=== PATIENT | male | born 1960 | race Two or more races ===

== ENCOUNTER → 2017-04-25 | Outpatient (CLI) | payer BC ==
[~2017-04-25] MED LIST: /WARF25TA PO; ALTA10CA3 PO; DILA2TAB PO; METOPROLOL PO; TYLE325T5 PO; [UNRECOGNIZED DRUG - OTHER] PO
--- NOTE | 2017-04-25 23:45 | ECWPNPC ---
PATIENT NAME: VNA SHARMA : 1960 GENDER: MALE VISIT DATE: 04/25/2017 DISCHARGE DATE: 04/25/17 1520 VISIT LOCKED DATE TIME: PHYSICIAN: MELECIO RAMOS RESOURCE: MELECIO RAMOS REASON FOR APPOINTMENT 1. BACK HISTORY OF PRESENT ILLNESS NEW PATIENT CONSULT: WHEN DID YOUR PAIN FIRST START? . BRIEFLY DESCRIBE HOW YOUR PAIN STARTED? . HOW DOES YOUR PAIN CHANGE WITH TIME? . DOES YOUR PAIN AWAKEN YOU FROM SLEEP? . HOW MANY HOURS OF SLEEP DO YOU NORMALLY GET? . ANY DIAGNOSTIC TESTING? . FACILITY WHERE TESTS WERE DONE? ____. PAIN TREATMENT TREATMENT YES CANCER HAVE YOU EVER HAD ANY TYPE OF CANCER?NO NO. PAIN SCREENING: PATIENT HAS A COMPLAINT OF ACUTE OR CHRONIC PAIN :YES FALL RISK SCREENING: SCREENING :NO FALLS IN THE PAST YEAR DELCID INVENTORY: QUESTIONNAIRE ASSESSEDYES SCORE VALUE CALCULATED YES SCORE: 5/63 DENIES SUICIDAL AND HOMICIDAL IDEATION TODAY'S VISIT: NOTES: REFERRED FOR LOW BACK AND HIP PAIN BY DR LISA LOU FROM [facility]. BACK PAIN BEGAN SUDDDENLY ABOUT 2 YEARS AGO WITH SUDDEN PAIN IN BACK AND THEN WHEN TO KNEES. SAW ROSENDA AND THEN HAD XRAYS, SAW DR RICHARDSON. THEN DR ROJAS FOR NON RAD IO ATTEMPT DO LE - UNABLE TO ACCESS. HAD MARKED PAIN AFTER THIS WAS 2015. HAD SEVERAL WEEKS OF PHYSCAL THERAPY - NO SUCCESS - HARDEST WAS TO BEND FORWARD. LEFT HIP PAIN BEGAN ABOUT 1 YEAR AGO - FOUND TO HAVE DEGENERATIVE CHANGES AND A LABRAL TEAR. SAW DR GRAVES AT [facility] - NO SURGICAL SOLUTION FOR THE BACK PAIN. . HAS DIFFICULT TIME FINDING POSITION OF COMFORT - SLIGHT ELAVATION OF THE HEAD OF BED AND LEFT LEG CAN ALLOW HIM TO GET TO SLEEP BUT ARISES IN A FEW HOURS DUE TO PAIN. POOR SLEEP. NO RELIEF WITH LEFT HIP . REPORT IT IS HARD TO LEFT OR BEND LEFT LEG . HURTS TO RISE TO STANDING POSITION. HAS SOME NUMBNESS, TINGLING, BURNING IN LEFT LEG TO LEVEL OF KNEE. REPORTS SOME WEAKNESS IN LEFT LEG AND DRAGS FOOT AFTER WALKING A DISTANCE. . CURRENT MEDICATIONS TAKING RAMIPRIL 10 MG CAPSULE 1 CAPSULE ORALLY TWICE A DAY TAKING HYDROCHLOROTHIAZIDE 12.5 MG CAPSULE 1 CAPSULE IN THE MORNING ORALLY ONCE A DAY TAKING METOPROLOL TARTRATE 50 MG TABLET 1 TABLET WITH FOOD ORALLY TWICE A DAY TAKING PRAVASTATIN SODIUM 20 MG TABLET 1 TABLET ORALLY ONCE A DAY TAKING ASPIR-81 81 MG TABLET DELAYED RELEASE 1 TABLET ORALLY ONCE A DAY TAKING TYLENOL 325 MG TABLET 2 TABLETS NEEDED ORALLY EVERY 6 HRS MEDICATION LIST REVIEWED AND RECONCILED WITH THE PATIENT PAST MEDICAL HISTORY HTN HIGH CHOLESTEROL BACK PAIN AND LEFT HIP PAIN NECK PAIN ARTHRITIS ALLERGIES PENICILLIN (FOR ALLERGIES USE ONLY): NAUSEA/VOMITING: ALLERGY CLINDAMYCIN HCL: NAUSEA/VOMITING: ALLERGY LEVAQUIN: NAUSEA/VOMITING: ALLERGY SURGICAL HISTORY CHOLECYSTECTOMY YEARS AGO LEFT KNEE REPLACEMENT 2012 SURGERY ON BOTH WRISTS YEARS AGO RIGHT SHOULDER SURGERY YEARS AGO LEFT HAND SURGERY 2014 FAMILY HISTORY FATHER: , DIAGNOSED WITH HYPERTENSION, HEART DISEASE MOTHER: , DIAGNOSED WITH HYPERTENSION, CANCER 4 SISTER(S) . 2 SON(S) , 2 DAUGHTER(S) - HEALTHY. 1 SISTER HAS HAD A STROKE. SOCIAL HISTORY GENERAL: TOBACCO USE ARE YOU A:NONSMOKER RECREATIONAL DRUG USE DRUG USE?NO MARITAL STATUS: . WORSHIP [id number] NONE LANGUAGE LANGUAGES SPOKEN:[place] LEARNING BARRIERS / SPECIAL NEEDS BARRIERS TO LEARNING?NO HEARING IMPAIRED?NO VISION IMPAIRED?NO COGNITIVELY IMPAIRED?NO READINESS TO LEARN?YES LEARNING PREFERENCES?NO LEARNING CAPABILITIES PRESENT?YES EMOTIONAL BARRIERS?NO SPECIAL DEVICES?YES :[employer]ANE [employer]OGR[employer] ARE[employer] INTELLIGENCE OFFICER NEEDED?NO PAIN CLINIC PFS, CLERGY, PUBLIC HEALTH REFERRALS PFS REFERRAL NEEDED?NO CLERGY REFERRAL NEEDED?NO PUBLIC HEALTH REFERRAL NEEDED?NO WAS THE PROVIDER NOTIFIED OF ANY PERTINENT INFO?NO HAS THE PATIENT BEEN EDUCATED REGARDING HIS/HER PLAN OF CARE?YES HAS THE PATIENT BEEN EDUCATED REGARDING PAIN, THE RISK FOR PAIN, THE IMPORTANCE OF EFFECTIVE PAIN MANAGEMENT, AND THE PAIN ASSESSMENT PROCESS?YES PATIENT: ____. ADVANCE DIRECTIVES HEALTH CARE PROXY?YES NAME OF HCP SUNG PEYTONMANUEL CONTACT # FOR HCP PHONE #[phone] DO YOU HAVE A COPY WITH YOU?NO DO YOU HAVE A DNR?NO WOULD YOU LIKE MORE INFORMATION?NO LIVING WILL?NO WOULD YOU LIKE MORE INFORMATION?NO POWER OF NOTE SPECIALIST?NO WOULD YOU LIKE MORE INFORMATION?NO REVIEW OF SYSTEMS REVIEWED BY: PROVIDER: MELECIO STUART . CONSTITUTIONAL: ANY CHANGE IN YOUR MEDICAL CONDITION? NO . CHILLS NO . FEVER NO . INFECTION: DO YOU HAVE NEW INFECTIONS? NO . DO YOU HAVE HISTORY OF MRSA? NO . MUSCULOSKELETAL: ANY NEW PATTERNS OF PAIN OR NUMBNESS? NO . SYTEMIC LUPUS NO . GASTROENTEROLOGY: GENERAL SOME INCREASE IN CONSTIPATION . ANY NEW CHANGE IN BOWEL CONTROL? NO . BARRETTS ESOPHAGUS NO . CIRRHOSIS NO . HEPATITIS NO . LIVER FAILURE NO . ACID REFLUX NO . UNEXPLAINED WEIGHT LOSS NO . GENITOURINARY: ANY NEW CHANGE IN BLADDER CONTROL? NO . IS THERE A CHANCE YOU COULD BE ? NO . HEMATOLOGY/LYMPH: DO YOU TAKE ANY BLOOD THINNERS? (FOR EXAMPLE- COUMADIN, PLAVIX, AGGRENOX, PLATEL, PRADAXA, OR XARELTO) NO . WHEN WAS YOUR LAST DOSE? DATE: TIME: . LOW PLATELET COUNT NO . SICKLE CELL DISEASE NO . VON WILLIEBRANDS NO . FACTOR V LEIDEN NO . THALLASEMIA NO . ANEMIA NO . EASY BRUISING NO . NEUROLOGY: HAVE YOU FALLEN IN THE PAST 6 MONTHS? NO . ANY NEW EXTREMITY NUMBNESS OR WEAKNESS? NO . HEAD INJURY NO . DEMENTIA NO . CEREBRAL PALSY NO . MULTIPLE SCLEROSIS NO . DIZZINESS NO . HEADACHE NO . STROKES NO . VERTIGO NO . CARDIOLOGY: DO YOU HAVE A PACEMAKER OR DEFIBRILLATOR? NO . ANGINA NO . HEART ATTACK NO . HEART SURGERY NO . CONGESTIVE HEART FAILURE/FLUID OVERLOAD NO . CHEST PAIN NO . HIGH BLOOD PRESSURE ON MEDICATION(S) . IRREGULAR HEART BEAT NO . RESPIRATORY: HAVE YOU BEEN SICK IN THE PAST WEEK? NO . FEVER NO . FLU LIKE SYMPTOMS? NO . CPAP NO . BYPAP NO . ASTHMA NO . EMPHYSEMA NO . CHRONIC LUNG DISEASES NO . SHORTNESS OF BREATH ON EXERTION NO . DO YOU USE ANY TYPE OF TOBACCO (SMOKE, SMOKELESS, CHEW)? NO . COUGH NO . SNORING NO . INTEGUMENTARY: DO YOU HAVE ANY RASHES OR OPEN SORES? NO . ALLERGIC/IMMUNO: ARE YOU ALLERGIC TO SHELLFISH OR IV DYE? NO . ANY NEW ALLERGIES? NO . PSYCHIATRIC: DO YOU HAVE THOUGHTS OF HURTING YOURSELF OR SOMEONE ELSE? NO . ARE YOU ABUSED, NEGLECTED, OR IN AN UNSAFE ENVIRONMENT? NO . ENDOCRINOLOGY: ARE YOU DIABETIC? NO . THYROID DISORDER NO . OTHER: DO YOU NEED ANY PRESCRIPTIONS? NO . IF YES, PLEASE LIST: ____ . ANY NEW PROBLEMS WITH YOUR MEDICATIONS? NO . WHEN DID YOU LAST EAT? ____ . WHEN DID YOU LAST DRINK? ____ . WHAT DID YOU LAST DRINK? ____ . NAME OF PERSON DRIVING YOU HOME? ____ . DO YOU HAVE ANY OTHER QUESTIONS OR CONCERNS NO . UROLOGY: GENERAL NOCTURIA 1-2/NITE, OCCASIONAL HARD TO START STREAM . VITAL SIGNS WT 316.6 LBS, HT 70", BMI 45.42 INDEX, BP 149/93 MM HG, HR 91 /MIN, RR 18 /MIN, TEMP 97.5 F, OXYGEN SAT % 94%, NA INITIALS TL 1324, REVIEWED BY: CS. EXAMINATION GENERAL EXAMINATION: GENERAL APPEARANCE:OVERWEIGHT. PSYCHALERT , ORIENTED X 3 , APPROPRIATE MOOD AND AFFECT . HEENT:NORMOCEPHALIC, NO LYMPHADENOPATHY, NO THYROMEGLY. LUNGS:CLEAR TO AUSCULTATION BILATERALLY, NO WHEEZES RALES OR RHONCHI. HEART:HEART RATE REGULAR, NORMAL S1S2, NO MURMURS, CLICK OR RUBS, NO CAROTID BRUITS. BACK:2 CM LATTY CYST UNDER LEFT SCAPULA. MUSCULOSKELETAL:MUSCLE STRENGTH TESTING 5/5 BILATERAL UPPER EXTREMITIES, 5-/5 RIGHT LOWER EXTREMITY, 4+LEFT LOWER EXTREMITY. POINT OVER LUMBAR SPINOUS PROCESSES AND LUMBOSACRAL AXIS. NO SPECIFIC TENDERNESS OVER BILATERAL SACRAL ILIAC JOINTS. CAB FLEX SPINE TO 20 DEGREES, , EXTEND TO 5 DEGREES AND IS UNABLE TO ROTATE SIDE TO SIDE WITHOUT SIGNIFICANT PAIN. SLOW TO RISE TO STANDING POSITION. POSTURE STOOPED. GAIT SLOW WIDEBASED. . NEUROLOGIC EXAM:DTR'S 1+ BILATERAL UPPER EXTREMITIES, 2+ LEFT LOWER EXTREMITY, LE, TRACE TO ABSENT RIGHT LOWER EXTREMITY. PLANTAR RESPONSE IN FLEXOR. NO CLONUS. MARIA DE JESUS SIGNIFICANT SENSORY CHANGES ELICITED TO LIGHT TOUCH OVER BILATERAL LOWER EXTREMITIES. DIAGNOSTIC TESTS REVIEWEDMRI OF LUMBAR SPINE COMPLETED 04/13/17 DEMONSTRATED OLD COMPRESSION FRACTURES AT L1 AND L2. THERE ARE DIFFUSE DISC BULGES REPORTED AT L2-3, L3-4 AND L4-5. THEREIS DIFFUSE DISC BULGE AND SMALL CENTRAL DISC PROTRUSION WITH AN ASSOCIATED OSTEOPHYTE FORMATION AT L5-S1 LEVEL WITH MINIMAL THECAL SAC COMPRESSION. THERE IS HYPERTROPHY OF THE POSTERIOR ARTICULATING FACETS NOTED AT ALL LEVELS. THIS WAS REVIEWED AND DISCUSSED WITH THE PATIENT AND HIS . ASSESSMENTS LUMBAR DISC DISPLACEMENT WITHOUT MYELOPATHY - M51.26 (PRIMARY) FACET ARTHRITIS OF LUMBOSACRAL REGION - M46.97 OTHER CHRONIC PAIN - G89.29 PAIN IN LEFT HIP - M25.552 TREATMENT LUMBAR DISC DISPLACEMENT WITHOUT MYELOPATHY NOTES: LUMBAR EPIDURAL INJECTION: YOUR PROCEDURE MATERIAL WAS PRINTED,WHAT IS LUMBAR EPIDURAL INJECTION? MATERIAL WAS PRINTED,LUMBAR EPIDURAL INJECTION: RECOVERY AT HOME MATERIAL WAS PRINTED. CLINICAL NOTES: OPTION FOR EPIDURAL INJECTIONS WERE DISCUSSED WITH THE PATIENT. FDA CONCERNS AND WARNING WERE REVIEWED INCLUDING THE RISK OF BLEEDING, RISK OF INFECTION, RISK OF INCREASED PAIN OR NEURALGIA, AND RISK OF PARALYSIS. PATIENT'S QUESTIONS WERE ANSWERED AND HE/SHE WISHES TO MOVE FORWARD WITH EPIDURAL INJECTION. ALSO DISCUSSED WITH PATIENT THAT FURTHER TREATMENT MAY INCLUDE DIAGNOSTIC VERSUS THERAPEUTIC LUMBAR FACET BLOCK AND RADIOFREQUENCY DENERVATION AT THE FACETS. WILL PROCEDE FIRST WITH LESB DUE TO LEFT LEG WEAKNESS AND RADICULAR PAIN. DR MARIN'S NOTE ALSO STATES HE IS SEEING SOME "BRIDGING SYNDESMOPHYTES ALMOST IN A DISH PATTERN" WILL OBTAIN LAB WORK ALREADY DONE AND WILL GIVE HIM A LAB SLIP TO LOOK FOR AUTOIMMUNE ISSUES SUCH ANKYLOSING SPONDYLITIS. FACET ARTHRITIS OF LUMBOSACRAL REGION LAB: ERYTHROCYTE SEDIMENTATION RATE LAB: [id number] LAB: LUPUS TYPE ANTICOAGULANT SCREE LAB: LYME DISEASE SCRN WITH CONFIRM LAB: RHEUMATOID FACTOR QUANT LAB: CHASIDY TITER & PATTERN NOTES: INTRALAMINAL LUMBAR EPIDURAL AT L4-5/L5-S1. PREVENTIVE MEDICINE PAIN CLINIC TEACHING: PROCEDURE TEACHING PRE-PROCEDURE TEACHING DONE. QUESTIONS ANSWERED AND PATIENT VERBALIZES UNDERSTANDING.. PROCEDURE CODES FA211 ESTABILISHED PATIENT [facility] CHARGE DISPOSITION & COMMUNICATION FOLLOW UP AFTER PROCEDURE (REASON: [facility] - LABS FROM [facility]. INTRALAMINAL LUMBAR EPIDURAL AT L4-5/L5-S1) ELECTRONICALLY SIGNED BY ANGELA FAY ON 04/25/2017 AT 06:20 PM EDT DISCLAIMER : THIS IS A VISIT SUMMARY EXTRACTED FROM THE [employer] CHART. IT IS NOT A COPY OF THE [employer] PROGRESS NOTE. PRIYANKA
== END ==
LOC: M PAIN 13:20
PROVIDERS: ATTEND Nurse Practitioner Family
DX: M51.26 Other intervertebral disc displacement, lumbar region (principal); M46.97 Unspecified inflammatory spondylopathy, lumbosacral region; G89.29 Other chronic pain; M25.552 Pain in left hip; Z79.82 Long term (current) use of aspirin; Z79.899 Other long term (current) drug therapy; I10 Essential (primary) hypertension; E78.00 Pure hypercholesterolemia, unspecified; Z88.0 Allergy status to penicillin; Z88.1 Allergy status to other antibiotic agents

== ENCOUNTER → 2017-06-06 | Outpatient (CLI) | payer BC ==
[~2017-06-06] MED LIST changes: +ISOVUE-M 300 61% 15ML VIAL (Q9967) As Ordered ONE; +LIDOCAINE 1% SDV INJ 30 ML VIAL As Ordered ONE; +MIDAZOLAM INJ 2 MG/2 ML VIAL (J2250) As Ordered ONE; +ONDANSETRON 4MG/2ML VIAL (J2405) As Ordered ONE; +diazePAM 5 MG TAB As Ordered ONE; +diphenhydrAMINE 25 MG CAP As Ordered ONE; +fentaNYL 100 MCG/2 ML INJECTION (J3010) As Ordered ONE; +methylPREDNISolone SUSP 40 MG/ML (DEPO-medrol) VIAL (J1030) As Ordered ONE; +oxyCODONE 5MG TAB As Ordered ONE
--- NOTE | 2017-06-06 15:34 | REP ---
Partial lumbar spine series: Single AP view. . History: Injection procedure for pain. 12th seconds of fluoroscopy time is reported. Findings: A single fluoroscopically obtained last image hold procedural spot radiograph of the lumbar spine documents needle position and contrast injection associated with injection procedure. Signed by Manolo Monroe MD 06/06/2017 03:26 P
--- NOTE | 2017-06-09 23:41 | ECWPNPC ---
PATIENT NAME: VAN SHARMA : 1960 GENDER: MALE VISIT DATE: 06/06/2017 DISCHARGE DATE: 06/06/17 1510 VISIT LOCKED DATE TIME: PHYSICIAN: HORACIO POSADA RESOURCE: HORACIO POSADA REASON FOR APPOINTMENT 1. INTRALAMINAL LUMBAR EPIDURAL AT L4-5/L5-S HISTORY OF PRESENT ILLNESS HISTORY OF PRESENT ILLNESS: PAIN THE PATIENT DESCRIBES THE PAIN... FALL RISK SCREENING: SCREENING :NO FALLS IN THE PAST YEAR CURRENT MEDICATIONS TAKING RAMIPRIL 10 MG CAPSULE 1 CAPSULE ORALLY TWICE A DAY, NOTES: 06-06-17899 TAKING HYDROCHLOROTHIAZIDE 12.5 MG CAPSULE 1 CAPSULE IN THE MORNING ORALLY ONCE A DAY, NOTES: 06-05-172099 TAKING METOPROLOL TARTRATE 50 MG TABLET 1 TABLET WITH FOOD ORALLY TWICE A DAY, NOTES: 06-06-17899 TAKING PRAVASTATIN SODIUM 20 MG TABLET 1 TABLET ORALLY ONCE A DAY, NOTES: 06-05-172099 TAKING ASPIR-81 81 MG TABLET DELAYED RELEASE 1 TABLET ORALLY ONCE A DAY, NOTES: 06-05-172099 TAKING TYLENOL 325 MG TABLET 2 TABLETS NEEDED ORALLY EVERY 6 HRS, NOTES: 06-05-172099 MEDICATION LIST REVIEWED AND RECONCILED WITH THE PATIENT PAST MEDICAL HISTORY HTN HIGH CHOLESTEROL BACK PAIN AND LEFT HIP PAIN NECK PAIN ARTHRITIS ALLERGIES PENICILLIN (FOR ALLERGIES USE ONLY): NAUSEA/VOMITING: ALLERGY CLINDAMYCIN HCL: NAUSEA/VOMITING: ALLERGY LEVAQUIN: NAUSEA/VOMITING: ALLERGY SURGICAL HISTORY CHOLECYSTECTOMY YEARS AGO LEFT KNEE REPLACEMENT 2013 SURGERY ON BOTH WRISTS YEARS AGO RIGHT SHOULDER SURGERY YEARS AGO LEFT HAND SURGERY 2014 REVIEW OF SYSTEMS REVIEWED BY: PROVIDER: . CONSTITUTIONAL: ANY CHANGE IN YOUR MEDICAL CONDITION? NO . CHILLS NO . FEVER NO . INFECTION: DO YOU HAVE NEW INFECTIONS? NO . DO YOU HAVE HISTORY OF MRSA? NO . MUSCULOSKELETAL: ANY NEW PATTERNS OF PAIN OR NUMBNESS? NO . GASTROENTEROLOGY: ANY NEW CHANGE IN BOWEL CONTROL? NO . GENITOURINARY: ANY NEW CHANGE IN BLADDER CONTROL? NO . IS THERE A CHANCE YOU COULD BE ? NO . HEMATOLOGY/LYMPH: DO YOU TAKE ANY BLOOD THINNERS? (FOR EXAMPLE- COUMADIN, PLAVIX, AGGRENOX, PLATEL, PRADAXA, OR XARELTO) NO . WHEN WAS YOUR LAST DOSE? DATE: TIME: . NEUROLOGY: HAVE YOU FALLEN IN THE PAST 6 MONTHS? NO . ANY NEW EXTREMITY NUMBNESS OR WEAKNESS? NO . CARDIOLOGY: DO YOU HAVE A PACEMAKER OR DEFIBRILLATOR? NO . RESPIRATORY: HAVE YOU BEEN SICK IN THE PAST WEEK? NO . FEVER NO . FLU LIKE SYMPTOMS? NO . COUGH NO . INTEGUMENTARY: DO YOU HAVE ANY RASHES OR OPEN SORES? NO . ALLERGIC/IMMUNO: ARE YOU ALLERGIC TO SHELLFISH OR IV DYE? NO . ANY NEW ALLERGIES? NO . PSYCHIATRIC: DO YOU HAVE THOUGHTS OF HURTING YOURSELF OR SOMEONE ELSE? NO . ARE YOU ABUSED, NEGLECTED, OR IN AN UNSAFE ENVIRONMENT? NO . ENDOCRINOLOGY: ARE YOU DIABETIC? YES . OTHER: DO YOU NEED ANY PRESCRIPTIONS? NO . IF YES, PLEASE LIST: ____ . ANY NEW PROBLEMS WITH YOUR MEDICATIONS? NO . WHEN DID YOU LAST EAT? 06-05-17 9PM . WHEN DID YOU LAST DRINK? 06-06-17 0900 . WHAT DID YOU LAST DRINK? WATER . NAME OF PERSON DRIVING YOU HOME? SUNG SHARMA . DO YOU HAVE ANY OTHER QUESTIONS OR CONCERNS NO . VITAL SIGNS WT 309.2 LBS, HT 70", BMI 44.36 INDEX, BP 132/78 MM HG, HR 62 /MIN, RR 18 /MIN, TEMP 96.7 F, OXYGEN SAT % 93, NA INITIALS SC 11:41, REVIEWED BY: EULALIO. ASSESSMENTS INTERVERTEBRAL DISC DISORDERS WITH RADICULOPATHY, LUMBAR REGION - M51.16 (PRIMARY) PROCEDURES PRE PROCEDURE DIAGNOSIS LUMBAR DISC DISORDER WITH RADICULOPATHY POST PROCEDURE DIAGNOSIS LUMBAR DISC DISORDER WITH RADICULOPATHY PROCEDURE LUMBAR EPIDURAL STEROID INJECTION UNDER FLUOROSCOPIC GUIDANCE SURGEON DR. HORACIO POSADA LIVESTOCK PRODUCER NONE ANESTHESIA LOCAL PRE PROCEDURE NOTE THE PATIENT HAS A HISTORY OF CHRONIC LOW BACK PAIN. I EVALUATE THE PATIENT AND REVIEWED THE CHART. I WENT OVER THE RISKS, ALTERNATIVES, AND BENEFITS ASSOCIATED WITH THIS PROCEDURE. THE PATIENT WOULD LIKE TO PROCEED AND GIVE CONSENT TO PERFORMED THE PROCEDURE. THE PATIENT DENIES UNEXPLAINABLE WEIGHT LOSS, FEVER, CHILLS, OR NEW CHANGES IN URINARY OR BOWEL CONTROL. DESCRIPTION OF PROCEDURE THE PATIENT WAS BROUGHT TO THE PROCEDURE ROOM AND PLACED IN THE PRONE POSITION. THE LUMBOSACRAL AREA WAS CLEANED WITH BETADINE SOLUTION AND DRAPED ASEPTICALLY. THE PROCEDURE WAS DONE UNDER STERILE CONDITIONS. I CHECKED LATERALITY AND THE LEVEL WHERE THE PROCEDURE WAS GOING TO BE PERFORMED WITH THE PATIENT AND THE SUPPORTING STAFF AT THE MOMENT OF THE TIME OUT IN THE PROCEDURE ROOM. UNDER FLUOROSCOPIC GUIDANCE, THE TARGET POINT WAS SELECTED AT THE INTERLAMINAR LEVEL OF L4-L5. LIDOCAINE WAS USED TO NUMB THE SKIN AND THE SUBCUTANEOUS TISSUE BELOW IT. EPIDURAL TUOHY NEEDLE, 17-GAUGE, WAS ADVANCED UNDER FLUOROSCOPIC GUIDANCE AND FOLLOWING PATIENT FEEDBACK UNTIL THE EPIDURAL SPACE WAS REACHED, 7 CM DEEP INTO THE SKIN BY THE LOSS OF RESISTANCE TECHNIQUE. ISOVUE M DYE 30%, 0.25 ML, WAS INJECTED SHOWING ADEQUATE SPREAD OF THE DYE. THEN, A SOLUTION OF 3 ML OF NORMAL SALINE WITH DEPO-MEDROL 60 MG WAS INJECTED SLOWLY FOLLOWING PATIENT FEEDBACK. THERE WAS NO EVIDENCE OF BLOOD, PARESTHESIA OR CEREBROSPINAL FLUID DURING THE PROCEDURE. THE PATIENT WAS SENT TO THE RECOVERY ROOM. THE PATIENT WAS MOVING THE EXTREMITIES AND DOING WELL. THERE WAS NO COMPLICATION DURING THE PROCEDURE. FLUOROSCOPY TIME WAS 13 SECONDS. POST PROCEDURE NOTE THE PATIENT WILL BE SEEN IN A FOLLOW UP IN THE NEXT FEW WEEKS. INSTRUCTIONS WERE GIVEN, QUESTIONS WERE ANSWERED, AND THE PATIENT EXPRESSED UNDERSTANDING AND AGREES WITH THE PLAN. I, BOB LOZANO, DOCUMENTED THE ABOVE INFORMATION ACTING A SCRIBE FOR DR. POSADA. I HAVE REVIEWED THE ABOVE DOCUMENT, WRITTEN BY BOB JHAIBTabitha AND I VERIFY THAT IT IS ACCURATE DIAGNOSTIC IMAGING [facility] FLUORO GUIDE SPINE INJECTION (PAIN)[id number] PROCEDURE CODES 68382 LUMBAR/SACRAL W/ IMAGING 6045F RADXPS IN END [id number] PXD DISPOSITION & COMMUNICATION FOLLOW UP 3 WEEKS ELECTRONICALLY SIGNED BY HORACIO POSADA MD ON 06/09/2017 AT 07:33 PM EDT DISCLAIMER : THIS IS A VISIT SUMMARY EXTRACTED FROM THE [employer] CHART. IT IS NOT A COPY OF THE [employer] PROGRESS NOTE. MTDD
== END | disposition home or self-care (01) ==
LOC: M PAIN 11:30
PROVIDERS: ATTEND Anesthesiology
DX: G89.29 Other chronic pain (principal); M51.16 Intervertebral disc disorders with radiculopathy, lumbar region; I10 Essential (primary) hypertension; E78.00 Pure hypercholesterolemia, unspecified; M19.90 Unspecified osteoarthritis, unspecified site; Z79.899 Other long term (current) drug therapy; Z79.82 Long term (current) use of aspirin; Z88.0 Allergy status to penicillin; Z88.1 Allergy status to other antibiotic agents
CPT/HCPCS: 62323; J1030; J2250; J3010; Q9967

== ENCOUNTER → 2017-06-28 | Outpatient (CLI) | payer BC ==
[~2017-06-28] MED LIST changes: -ISOVUE-M 300 61% 15ML VIAL (Q9967) As Ordered ONE; -LIDOCAINE 1% SDV INJ 30 ML VIAL As Ordered ONE; -MIDAZOLAM INJ 2 MG/2 ML VIAL (J2250) As Ordered ONE; -ONDANSETRON 4MG/2ML VIAL (J2405) As Ordered ONE; -diazePAM 5 MG TAB As Ordered ONE; -diphenhydrAMINE 25 MG CAP As Ordered ONE; -fentaNYL 100 MCG/2 ML INJECTION (J3010) As Ordered ONE; -methylPREDNISolone SUSP 40 MG/ML (DEPO-medrol) VIAL (J1030) As Ordered ONE; -oxyCODONE 5MG TAB As Ordered ONE
--- NOTE | 2017-07-17 01:41 | ECWPNPC ---
PATIENT NAME: VAN SHARMA : 1960 GENDER: MALE VISIT DATE: 06/28/2017 DISCHARGE DATE: 06/28/17925 VISIT LOCKED DATE TIME: PHYSICIAN: MELECIO RAMOS RESOURCE: MELECIO RAMOS REASON FOR APPOINTMENT 1. POST LESI HISTORY OF PRESENT ILLNESS HISTORY OF PRESENT ILLNESS: PAIN THE PATIENT DESCRIBES THE PAIN... FALL RISK SCREENING: SCREENING :NO FALLS IN THE PAST YEAR TODAY'S VISIT: NOTES: S/P LESI COMPLETED ON 06/06/17. NOTESPAIN WAS 8/10 PRIOR TO PROCEDURE ND THEN POST PROCEDURE WAS DECREASED TO 5/10. PAIN RETURNED TO BASELINE AT THE 4 WEEK BRANDT. NOTES SIG STIFFNESS AND INCREASED PAIN ACROSS THE BACK. NOTES IS NO LONGER HAVING PAIN RADIATING INTO LEFT LEG. PROBLONGED STANDING CAUSES SEVERE PAIN. CURRENT MEDICATIONS TAKING RAMIPRIL 10 MG CAPSULE 1 CAPSULE ORALLY TWICE A DAY TAKING HYDROCHLOROTHIAZIDE 12.5 MG CAPSULE 1 CAPSULE IN THE MORNING ORALLY ONCE A DAY TAKING METOPROLOL TARTRATE 50 MG TABLET 1 TABLET WITH FOOD ORALLY TWICE A DAY TAKING PRAVASTATIN SODIUM 20 MG TABLET 1 TABLET ORALLY ONCE A DAY TAKING ASPIR-81 81 MG TABLET DELAYED RELEASE 1 TABLET ORALLY ONCE A DAY TAKING TYLENOL 325 MG TABLET 2 TABLETS NEEDED ORALLY EVERY 6 HRS TAKING METFORMIN HCL 500 MG TABLET 1 TABLET WITH MEALS ORALLY TWICE A DAY MEDICATION LIST REVIEWED AND RECONCILED WITH THE PATIENT PAST MEDICAL HISTORY HTN HIGH CHOLESTEROL BACK PAIN AND LEFT HIP PAIN NECK PAIN ARTHRITIS ALLERGIES PENICILLIN (FOR ALLERGIES USE ONLY): NAUSEA/VOMITING: ALLERGY CLINDAMYCIN HCL: NAUSEA/VOMITING: ALLERGY LEVAQUIN: NAUSEA/VOMITING: ALLERGY REVIEW OF SYSTEMS REVIEWED BY: PROVIDER: MELECIO RAMOS PAD CUTTER . CONSTITUTIONAL: ANY CHANGE IN YOUR MEDICAL CONDITION? NO . CHILLS NO . FEVER NO . INFECTION: DO YOU HAVE NEW INFECTIONS? NO . DO YOU HAVE HISTORY OF MRSA? NO . MUSCULOSKELETAL: ANY NEW PATTERNS OF PAIN OR NUMBNESS? YES . GASTROENTEROLOGY: ANY NEW CHANGE IN BOWEL CONTROL? NO . GENITOURINARY: ANY NEW CHANGE IN BLADDER CONTROL? NO . IS THERE A CHANCE YOU COULD BE ? NO . HEMATOLOGY/LYMPH: DO YOU TAKE ANY BLOOD THINNERS? (FOR EXAMPLE- COUMADIN, PLAVIX, AGGRENOX, PLATEL, PRADAXA, OR XARELTO) NO . WHEN WAS YOUR LAST DOSE? DATE: TIME: . NEUROLOGY: HAVE YOU FALLEN IN THE PAST 6 MONTHS? NO . ANY NEW EXTREMITY NUMBNESS OR WEAKNESS? NO . CARDIOLOGY: DO YOU HAVE A PACEMAKER OR DEFIBRILLATOR? NO . RESPIRATORY: HAVE YOU BEEN SICK IN THE PAST WEEK? NO . FEVER NO . FLU LIKE SYMPTOMS? NO . COUGH NO . INTEGUMENTARY: DO YOU HAVE ANY RASHES OR OPEN SORES? NO . ALLERGIC/IMMUNO: ARE YOU ALLERGIC TO SHELLFISH OR IV DYE? NO . ANY NEW ALLERGIES? NO . PSYCHIATRIC: DO YOU HAVE THOUGHTS OF HURTING YOURSELF OR SOMEONE ELSE? NO . ARE YOU ABUSED, NEGLECTED, OR IN AN UNSAFE ENVIRONMENT? NO . ENDOCRINOLOGY: ARE YOU DIABETIC? YES . OTHER: DO YOU NEED ANY PRESCRIPTIONS? NO . IF YES, PLEASE LIST: ____ . ANY NEW PROBLEMS WITH YOUR MEDICATIONS? NO . WHEN DID YOU LAST EAT? ____ . WHEN DID YOU LAST DRINK? ____ . WHAT DID YOU LAST DRINK? ____ . NAME OF PERSON DRIVING YOU HOME? ____ . DO YOU HAVE ANY OTHER QUESTIONS OR CONCERNS NO . VITAL SIGNS WT 278 LBS, HT 70", BMI 39.88 INDEX, BP 149/84 MM HG, HR 65 /MIN, RR 18 /MIN, TEMP 97.8 F, OXYGEN SAT % 96%, NA INITIALS SC 09:02, REVIEWED BY: NL. EXAMINATION GENERAL EXAMINATION: GENERAL APPEARANCE:OVERWEIGHT. PSYCHALERT , ORIENTED X 3 , APPROPRIATE MOOD AND AFFECT . LUNGS:CLEAR TO AUSCULTATION BILATERALLY, NO WHEEZES RALES OR RHONCHI. HEART:HEART RATE REGULAR, NORMAL S1S2,. BACK:2 CM FATTY CYST UNDER LEFT SCAPULA. MUSCULOSKELETAL:MUSCLE STRENGTH TESTING 5/5 BILATERAL UPPER EXTREMITIES, 5-/5 RIGHT LOWER EXTREMITY, 4+LEFT LOWER EXTREMITY. POINT OVER LUMBAR SPINOUS PROCESSES AND LUMBOSACRAL AXIS. NO SPECIFIC TENDERNESS OVER BILATERAL SACRAL ILIAC JOINTS. SLOW TO RISE TO STANDING POSITION. POSTURE UPRIGHT. GAIT SLOW WIDEBASED. . NEUROLOGIC EXAM:NO SIGNIFICANT SENSORY CHANGES ELICITED TO LIGHT TOUCH OVER BILATERAL LOWER EXTREMITIES. ASSESSMENTS LUMBAR DISC DISPLACEMENT WITHOUT MYELOPATHY - M51.26 (PRIMARY) FACET ARTHRITIS OF LUMBOSACRAL REGION - M46.97 OTHER CHRONIC PAIN - G89.29 PAIN IN LEFT HIP - M25.552 TREATMENT LUMBAR DISC DISPLACEMENT WITHOUT MYELOPATHY INJECTION FACET JOINT/NERVE GEOVANNY/MELECIO WOLFE 06/28/2017 9:15:55 AM > BILATERAL THERAPEUTIC NOTES: HOLD DIABETES MED AM OF PROCEDURE. PREVENTIVE MEDICINE DISCUSSED PRE PROCEDURE CARE AND WHAT TO EXPECT WITH THE INJECTION / PT EXPRESSED UNDERSTANDING OF ALL. PROCEDURE CODES FA211 ESTABILISHED PATIENT [facility] CHARGE DISPOSITION & COMMUNICATION FOLLOW UP AFTER INJECTION (REASON: CHECK AUTH FOR THERAPEUTIC LUMBAR FACET BLOCK BILATERAL L4-5, L5-S1) ELECTRONICALLY SIGNED BY ANGELA FAY ON 07/16/2017 AT 06:37 PM EDT DISCLAIMER : THIS IS A VISIT SUMMARY EXTRACTED FROM THE [employer] CHART. IT IS NOT A COPY OF THE [employer] PROGRESS NOTE. PRIYANKA
== END ==
LOC: M PAIN 08:45
PROVIDERS: ATTEND Nurse Practitioner Family
DX: M51.26 Other intervertebral disc displacement, lumbar region (principal); M46.97 Unspecified inflammatory spondylopathy, lumbosacral region; G89.29 Other chronic pain; M25.552 Pain in left hip; I10 Essential (primary) hypertension; E78.00 Pure hypercholesterolemia, unspecified; Z79.82 Long term (current) use of aspirin; Z79.84 Long term (current) use of oral hypoglycemic drugs; Z88.0 Allergy status to penicillin; Z88.1 Allergy status to other antibiotic agents; Z88.8 Allergy status to other drugs, medicaments and biological substances

== ENCOUNTER → 2017-07-18 | Outpatient (CLI) | payer BC ==
[~2017-07-18] MED LIST changes: +BUPIVACAINE HCL 0.25% 30 ML VIAL As Ordered ONE; +ISOVUE-M 300 61% 15ML VIAL (Q9967) As Ordered ONE; +LIDOCAINE 1% SDV INJ 30 ML VIAL As Ordered ONE; +TRIAMCINOLONE ACETONIDE SUSP 40 MG/ML VIAL (J3301) As Ordered ONE; +diazePAM 5 MG TAB As Ordered ONE; +diphenhydrAMINE 25 MG CAP As Ordered ONE; +oxyCODONE 5MG TAB As Ordered ONE
--- NOTE | 2017-07-18 12:23 | REP ---
FACET BLOCK: All imaging was reviewed with Dr. Anderson prior to dictation. The portable C-arm was provided in the OR for Dr. Redding for fluoroscopic guidance. Two intraoperative fluoroscopic films were obtained using last image hold technology for needle placement verification for lumbar facet injection. The films are on the PACS system and available for review. 31 seconds of fluoroscopy time were utilized for this procedure. Reviewed by CHIQUITA Burgess 07/18/2017 12:54 PEdited and Signed by Michael Anderson MD 07/18/2017 08:01 P
--- NOTE | 2017-07-24 00:19 | ECWPNPC ---
PATIENT NAME: VAN SHARMA : 1960 GENDER: MALE VISIT DATE: 07/18/2017 DISCHARGE DATE: 07/18/17 1139 VISIT LOCKED DATE TIME: PHYSICIAN: HORACIO POSADA RESOURCE: HORACIO POSADA REASON FOR APPOINTMENT 1. THER. FACET L4-5, L4-S1 HISTORY OF PRESENT ILLNESS HISTORY OF PRESENT ILLNESS: PAIN THE PATIENT DESCRIBES THE PAIN... FALL RISK SCREENING: SCREENING :NO FALLS IN THE PAST YEAR CURRENT MEDICATIONS TAKING RAMIPRIL 10 MG CAPSULE 1 CAPSULE ORALLY TWICE A DAY, NOTES: 07/18 700 TAKING HYDROCHLOROTHIAZIDE 12.5 MG CAPSULE 1 CAPSULE IN THE MORNING ORALLY ONCE A DAY, NOTES: 07/17 2100 TAKING METOPROLOL TARTRATE 50 MG TABLET 1 TABLET WITH FOOD ORALLY TWICE A DAY, NOTES: 07/18 700 TAKING PRAVASTATIN SODIUM 20 MG TABLET 1 TABLET ORALLY ONCE A DAY, NOTES: 07/17 2100 TAKING ASPIR-81 81 MG TABLET DELAYED RELEASE 1 TABLET ORALLY ONCE A DAY, NOTES: 07/17 2100 TAKING TYLENOL 325 MG TABLET 2 TABLETS NEEDED ORALLY EVERY 6 HRS, NOTES: 07/17 2100 TAKING METFORMIN HCL 500 MG TABLET 1 TABLET WITH MEALS ORALLY TWICE A DAY, NOTES: 07/17 2100 MEDICATION LIST REVIEWED AND RECONCILED WITH THE PATIENT PAST MEDICAL HISTORY HTN HIGH CHOLESTEROL BACK PAIN AND LEFT HIP PAIN NECK PAIN ARTHRITIS ALLERGIES PENICILLIN (FOR ALLERGIES USE ONLY): NAUSEA/VOMITING: ALLERGY CLINDAMYCIN HCL: NAUSEA/VOMITING: ALLERGY LEVAQUIN: NAUSEA/VOMITING: ALLERGY SOCIAL HISTORY GENERAL: TOBACCO USE ARE YOU A:NONSMOKER ALCOHOL SCREENING POINTS1 INTERPRETATIONNEGATIVE RECREATIONAL DRUG USE DRUG USE?NO CAFFEINE CAFFEINE USE?YES HOW OFTEN AND HOW MUCH? OCCASSIONALLY OCCUPATION: DISABLED. DIET: REGULAR. EXERCISE: NO REGULAR EXERCISE. MARITAL STATUS: . TAOIST [id number] NONE LANGUAGE LANGUAGES SPOKEN:KHMER LEARNING BARRIERS / SPECIAL NEEDS BARRIERS TO LEARNING?NO HEARING IMPAIRED?NO VISION IMPAIRED?NO COGNITIVELY IMPAIRED?NO READINESS TO LEARN?YES LEARNING PREFERENCES?NO LEARNING CAPABILITIES PRESENT?YES EMOTIONAL BARRIERS?NO SPECIAL DEVICES?YES :CANE SALES MARKETING NEEDED?NO PAIN CLINIC PFS, CLERGY, PUBLIC HEALTH REFERRALS PFS REFERRAL NEEDED?NO CLERGY REFERRAL NEEDED?NO PUBLIC HEALTH REFERRAL NEEDED?NO WAS THE PROVIDER NOTIFIED OF ANY PERTINENT INFO?NO HAS THE PATIENT BEEN EDUCATED REGARDING HIS/HER PLAN OF CARE?YES HAS THE PATIENT BEEN EDUCATED REGARDING PAIN, THE RISK FOR PAIN, THE IMPORTANCE OF EFFECTIVE PAIN MANAGEMENT, AND THE PAIN ASSESSMENT PROCESS?YES PATIENT: ____. ADVANCE DIRECTIVES HEALTH CARE PROXY?YES NAME OF HCP SUNG SHARMA CONTACT # FOR HCP PHONE #[phone] DO YOU HAVE A COPY WITH YOU?NO DO YOU HAVE A DNR?NO WOULD YOU LIKE MORE INFORMATION?NO LIVING WILL?NO WOULD YOU LIKE MORE INFORMATION?NO POWER OF PLANER OPERATOR?NO WOULD YOU LIKE MORE INFORMATION?NO DOMESTIC VIOLENCE DO YOU FEEL SAFE IN YOUR ENVIRONMENT?YES REVIEWED 07/18/17 AD. REVIEW OF SYSTEMS REVIEWED BY: PROVIDER: . CONSTITUTIONAL: ANY CHANGE IN YOUR MEDICAL CONDITION? NO . CHILLS NO . FEVER NO . INFECTION: DO YOU HAVE NEW INFECTIONS? NO . DO YOU HAVE HISTORY OF MRSA? NO . MUSCULOSKELETAL: ANY NEW PATTERNS OF PAIN OR NUMBNESS? YES, PAIN IS HIGHER UP ON HIS BACK AND NUMBNESS AND BURNING BACK IN LEGS . GASTROENTEROLOGY: ANY NEW CHANGE IN BOWEL CONTROL? NO . GENITOURINARY: ANY NEW CHANGE IN BLADDER CONTROL? NO . IS THERE A CHANCE YOU COULD BE ? NO . HEMATOLOGY/LYMPH: DO YOU TAKE ANY BLOOD THINNERS? (FOR EXAMPLE- COUMADIN, PLAVIX, AGGRENOX, PLATEL, PRADAXA, OR XARELTO) NO . WHEN WAS YOUR LAST DOSE? DATE: TIME: . NEUROLOGY: HAVE YOU FALLEN IN THE PAST 6 MONTHS? NO . ANY NEW EXTREMITY NUMBNESS OR WEAKNESS? NO . CARDIOLOGY: DO YOU HAVE A PACEMAKER OR DEFIBRILLATOR? NO . RESPIRATORY: HAVE YOU BEEN SICK IN THE PAST WEEK? NO . FEVER NO . FLU LIKE SYMPTOMS? NO . COUGH NO . INTEGUMENTARY: DO YOU HAVE ANY RASHES OR OPEN SORES? NO . ALLERGIC/IMMUNO: ARE YOU ALLERGIC TO SHELLFISH OR IV DYE? NO . ANY NEW ALLERGIES? NO . PSYCHIATRIC: DO YOU HAVE THOUGHTS OF HURTING YOURSELF OR SOMEONE ELSE? NO . ARE YOU ABUSED, NEGLECTED, OR IN AN UNSAFE ENVIRONMENT? NO . ENDOCRINOLOGY: ARE YOU DIABETIC? YES, DOESN'T DO FSBS . OTHER: DO YOU NEED ANY PRESCRIPTIONS? NO . IF YES, PLEASE LIST: ____ . ANY NEW PROBLEMS WITH YOUR MEDICATIONS? NO . WHEN DID YOU LAST EAT? 07/17 2100 . WHEN DID YOU LAST DRINK? 07/18 0700 . WHAT DID YOU LAST DRINK? WATER . NAME OF PERSON DRIVING YOU HOME? --SUNG . DO YOU HAVE ANY OTHER QUESTIONS OR CONCERNS NO . VITAL SIGNS WT 302.6 LBS, HT 70", BMI 43.41 INDEX, BP 132/80 MM HG, HR 60 /MIN, RR 18 /MIN, TEMP 97.1 F, OXYGEN SAT % 93, NA INITIALS MP 0906, REVIEWED BY: EULALIO 0923. ASSESSMENTS SPONDYLOSIS OF LUMBAR REGION WITHOUT MYELOPATHY OR RADICULOPATHY - M47.816 (PRIMARY) PROCEDURES PN LUMBAR FACET BLOCK THERAPEUTIC PRE PROCEDURE DIAGNOSIS LUMBAR SPONDYLOSIS POST PROCEDURE DIAGNOSIS LUMBAR SPONDYLOSIS PROCEDURE BILATERAL L3-L4 AND BILATERAL L4-L5 LUMBAR FACET THERAPEUTIC BLOCK SURGEON DR. HORACIO POSADA FENDER MECHANIC NONE ANESTHESIA LOCAL PRE PROCEDURE NOTE THE PATIENT HAS A HISTORY OF CHRONIC LOW BACK PAIN. I EVALUATE THE PATIENT AND REVIEWED THE CHART. I WENT OVER THE RISKS, ALTERNATIVES, AND BENEFITS ASSOCIATED WITH THIS PROCEDURE. THE PATIENT WOULD LIKE TO PROCEED AND GIVE CONSENT TO PERFORMED THE PROCEDURE. THE PATIENT DENIES UNEXPLAINABLE WEIGHT LOSS, FEVER, CHILLS, OR NEW CHANGES IN URINARY OR BOWEL CONTROL DESCRIPTION OF PROCEDURE THE PATIENT WAS BROUGHT TO THE PROCEDURE ROOM AND PLACED IN THE PRONE POSITION. THE LUMBOSACRAL AREA WAS CLEANED WITH CHLORAPREP SOLUTION AND DRAPED ASEPTICALLY. THE PROCEDURE WAS DONE UNDER STERILE CONDITIONS. I CHECKED LATERALITY AND THE LEVEL WHERE THE PROCEDURE WAS GOING TO BE PERFORMED WITH THE PATIENT AND THE SUPPORTING STAFF AT THE MOMENT OF THE TIME OUT IN THE PROCEDURE ROOM. UNDER FLUOROSCOPIC GUIDANCE, THE TARGET POINT WAS SELECTED AT THE RIGHT AND LEFT L3-L4 AND RIGHT AND LEFT L4-L5 FACET JOINT. TARGET POINT WAS SELECTED AFTER LATERAL ROTATION AND TILT OF THE MAGNIFIER OF THE C-ARM. LIDOCAINE 0.5% WAS USED TO NUMB THE SKIN AND THE SUBCUTANEOUS TISSUE BELOW IT. SPINAL NEEDLES, 22-GAUGE, WERE ADVANCED UNDER FLUOROSCOPIC GUIDANCE AND FOLLOWING PATIENT FEEDBACK UNTIL THE TARGETS WERE TOUCHED. THE POSITION OF THE NEEDLES WAS VERIFIED WITH AP AND LATERAL VIEWS. AFTER PROPER POSITION OF THE NEEDLES WAS ACHIEVED, ISOVUE-M DYE 30% 0.1 ML WAS INJECTED SHOWING ADEQUATE SPREAD OF THE DYE. THEN A SOLUTION OF 1.9 ML OF BUPIVACAINE 0.125% OF KENALOG 10 MG WAS INJECTED AT EACH SITE. THERE WAS NO EVIDENCE OF BLOOD, PARESTHESIA OR CEREBROSPINAL FLUID DURING THE PROCEDURE. THE PATIENT WAS SENT TO THE RECOVERY ROOM. THE PATIENT WAS MOVING THE EXTREMITIES AND DOING WELL. THERE WAS NO COMPLICATION DURING THE PROCEDURE. FLUOROSCOPY TIME WAS 31 SECONDS POST PROCEDURE NOTE THE PATIENT WILL BE SEEN IN A FOLLOW UP IN THE NEXT FEW WEEKS. INSTRUCTIONS WERE GIVEN, QUESTIONS WERE ANSWERED, AND THE PATIENT EXPRESSED UNDERSTANDING AND AGREES WITH THE PLAN. I, BOB LOZANO, DOCUMENTED THE ABOVE INFORMATION ACTING A SCRIBE FOR DR. POSADA. I HAVE REVIEWED THE ABOVE DOCUMENT, WRITTEN BY BOB DELUNA AND I VERIFY THAT IT IS ACCURATE. DIAGNOSTIC IMAGING [facility] FACET BLOCK (PAIN)[id number] PROCEDURE CODES 17993 INJ PARAVERT F JNT L/S 1 LEV, MODIFIERS: 50 [id number] INJ PARAVERT F JNT L/S 2 LEV, MODIFIERS: 50 [id number] RADXPS IN END [id number] PXD DISPOSITION & COMMUNICATION FOLLOW UP 3 WEEKS ELECTRONICALLY SIGNED BY HORACIO POSADA MD ON 07/22/2017 AT 12:41 PM EDT DISCLAIMER : THIS IS A VISIT SUMMARY EXTRACTED FROM THE [employer] CHART. IT IS NOT A COPY OF THE [employer] PROGRESS NOTE. MTDD
== END ==
LOC: M PAIN 09:00
PROVIDERS: ATTEND Anesthesiology
DX: G89.29 Other chronic pain (principal); M47.816 Spondylosis without myelopathy or radiculopathy, lumbar region; M54.5 Low back pain; E11.9 Type 2 diabetes mellitus without complications; I10 Essential (primary) hypertension; E78.00 Pure hypercholesterolemia, unspecified; Z79.82 Long term (current) use of aspirin; Z79.84 Long term (current) use of oral hypoglycemic drugs; Z79.899 Other long term (current) drug therapy; Z88.0 Allergy status to penicillin; Z88.1 Allergy status to other antibiotic agents
CPT/HCPCS: 64493; 64494; J3301; Q9967

== ENCOUNTER → 2017-09-06 | Outpatient (CLI) | payer BC ==
[~2017-09-06] MED LIST changes: -BUPIVACAINE HCL 0.25% 30 ML VIAL As Ordered ONE; -ISOVUE-M 300 61% 15ML VIAL (Q9967) As Ordered ONE; -LIDOCAINE 1% SDV INJ 30 ML VIAL As Ordered ONE; -TRIAMCINOLONE ACETONIDE SUSP 40 MG/ML VIAL (J3301) As Ordered ONE; -diazePAM 5 MG TAB As Ordered ONE; -diphenhydrAMINE 25 MG CAP As Ordered ONE; -oxyCODONE 5MG TAB As Ordered ONE
--- NOTE | 2017-09-09 00:06 | ECWPNPC ---
PATIENT NAME: VAN SHARMA : 1960 GENDER: MALE VISIT DATE: 09/06/2017 DISCHARGE DATE: 09/06/17 1707 VISIT LOCKED DATE TIME: PHYSICIAN: MELECIO RAMOS RESOURCE: MELECIO RAMOS REASON FOR APPOINTMENT 1. POST PROCEDURE HISTORY OF PRESENT ILLNESS HISTORY OF PRESENT ILLNESS: PAIN THE PATIENT DESCRIBES THE PAIN... FALL RISK SCREENING: SCREENING :NO FALLS IN THE PAST YEAR TODAY'S VISIT: NOTES: S/P BILATERAL THERAPEUTIC LUMBAR FACET BLCOK COMPLETED 07/18/17. RATES PAIN TODAY . PAIN IS CENTERED ACROSS THE LOW BACK AND HIPS WILL HAVE A VERY DIFFICULT TIME STANDING AND WALKING AND LEFT LEG IS DRAGGING. FEELS LIKE IT WILL GIVE OUT.. CURRENT MEDICATIONS TAKING RAMIPRIL 10 MG CAPSULE 1 CAPSULE ORALLY TWICE A DAY TAKING HYDROCHLOROTHIAZIDE 12.5 MG CAPSULE 1 CAPSULE IN THE MORNING ORALLY ONCE A DAY TAKING METOPROLOL TARTRATE 50 MG TABLET 1 TABLET WITH FOOD ORALLY TWICE A DAY TAKING PRAVASTATIN SODIUM 20 MG TABLET 1 TABLET ORALLY ONCE A DAY TAKING ASPIR-81 81 MG TABLET DELAYED RELEASE 1 TABLET ORALLY ONCE A DAY TAKING TYLENOL 325 MG TABLET 2 TABLETS NEEDED ORALLY EVERY 6 HRS TAKING METFORMIN HCL 500 MG TABLET 1 TABLET WITH MEALS ORALLY TWICE A DAY MEDICATION LIST REVIEWED AND RECONCILED WITH THE PATIENT PAST MEDICAL HISTORY HTN HIGH CHOLESTEROL BACK PAIN AND LEFT HIP PAIN NECK PAIN ARTHRITIS ALLERGIES PENICILLIN (FOR ALLERGIES USE ONLY): NAUSEA/VOMITING: ALLERGY CLINDAMYCIN HCL: NAUSEA/VOMITING: ALLERGY LEVAQUIN: NAUSEA/VOMITING: ALLERGY SURGICAL HISTORY CHOLECYSTECTOMY YEARS AGO LEFT KNEE REPLACEMENT 2013 SURGERY ON BOTH WRISTS YEARS AGO RIGHT SHOULDER SURGERY YEARS AGO LEFT HAND SURGERY 2014 SOCIAL HISTORY GENERAL: TOBACCO USE ARE YOU A:NONSMOKER ALCOHOL SCREENING DID YOU HAVE A DRINK CONTAINING ALCOHOL IN THE PAST YEAR?YES HOW OFTEN DID YOU HAVE A DRINK CONTAINING ALCOHOL IN THE PAST YEAR?MONTHLY OR LESS (1 POINT) HOW MANY DRINKS DID YOU HAVE ON A TYPICAL DAY WHEN YOU WERE DRINKING IN THE PAST YEAR?1 OR 2 (0 POINTS) HOW OFTEN DID YOU HAVE SIX OR MORE DRINKS ON ONE OCCASION IN THE PAST YEAR?NEVER (0 POINTS) POINTS1 INTERPRETATIONNEGATIVE RECREATIONAL DRUG USE DRUG USE?NO CAFFEINE CAFFEINE USE?YES HOW OFTEN AND HOW MUCH? OCCASSIONALLY OCCUPATION: DISABLED. DIET: REGULAR. EXERCISE: NO REGULAR EXERCISE. MARITAL STATUS: . SABIANISM [id number] NONE LANGUAGE LANGUAGES SPOKEN:SCOTTISH LEARNING BARRIERS / SPECIAL NEEDS BARRIERS TO LEARNING?NO HEARING IMPAIRED?NO VISION IMPAIRED?NO COGNITIVELY IMPAIRED?NO READINESS TO LEARN?YES LEARNING PREFERENCES?NO LEARNING CAPABILITIES PRESENT?YES EMOTIONAL BARRIERS?NO SPECIAL DEVICES?YES :CANE ACCOUNTS SUPERVISOR NEEDED?NO PAIN CLINIC PFS, CLERGY, PUBLIC HEALTH REFERRALS PFS REFERRAL NEEDED?NO CLERGY REFERRAL NEEDED?NO PUBLIC HEALTH REFERRAL NEEDED?NO WAS THE PROVIDER NOTIFIED OF ANY PERTINENT INFO?NO HAS THE PATIENT BEEN EDUCATED REGARDING HIS/HER PLAN OF CARE?YES HAS THE PATIENT BEEN EDUCATED REGARDING PAIN, THE RISK FOR PAIN, THE IMPORTANCE OF EFFECTIVE PAIN MANAGEMENT, AND THE PAIN ASSESSMENT PROCESS?YES PATIENT: ____. ADVANCE DIRECTIVES HEALTH CARE PROXY?YES NAME OF HCP SUNG ZACHARY CONTACT # FOR HCP PHONE #[phone] DO YOU HAVE A COPY WITH YOU?NO DO YOU HAVE A DNR?NO WOULD YOU LIKE MORE INFORMATION?NO LIVING WILL?NO WOULD YOU LIKE MORE INFORMATION?NO POWER OF FIRE WARDEN?NO WOULD YOU LIKE MORE INFORMATION?NO DOMESTIC VIOLENCE DO YOU FEEL SAFE IN YOUR ENVIRONMENT?YES REVIEWED 07/18/17 AD. REVIEW OF SYSTEMS REVIEWED BY: PROVIDER: MELECIO STUART . CONSTITUTIONAL: ANY CHANGE IN YOUR MEDICAL CONDITION? NO, PT STATES BILAT LUMBAR FACET BLOCK, THERAPEUTIC DONE 07/18/17. PRE PROCEDURE PAIN WAS 10/10, POST PROCEDURE PAIN WAS 7-8/10. TODAY PAIN IS 9/10. PT STATES PAIN STARTED CREEPING UP ON 3RD DAY POST PROCEDURE UNPROVOKED . CHILLS NO . FEVER NO . INFECTION: DO YOU HAVE NEW INFECTIONS? NO . DO YOU HAVE HISTORY OF MRSA? NO . MUSCULOSKELETAL: ANY NEW PATTERNS OF PAIN OR NUMBNESS? YES, PAIN IS STARTING IN NECK AND BILAT SHOULDERS . GASTROENTEROLOGY: ANY NEW CHANGE IN BOWEL CONTROL? NO . GENITOURINARY: ANY NEW CHANGE IN BLADDER CONTROL? NO . IS THERE A CHANCE YOU COULD BE ? NO . HEMATOLOGY/LYMPH: DO YOU TAKE ANY BLOOD THINNERS? (FOR EXAMPLE- COUMADIN, PLAVIX, AGGRENOX, PLATEL, PRADAXA, OR XARELTO) NO . WHEN WAS YOUR LAST DOSE? DATE: TIME: . NEUROLOGY: HAVE YOU FALLEN IN THE PAST 6 MONTHS? NO . ANY NEW EXTREMITY NUMBNESS OR WEAKNESS? NO . CARDIOLOGY: DO YOU HAVE A PACEMAKER OR DEFIBRILLATOR? NO . RESPIRATORY: HAVE YOU BEEN SICK IN THE PAST WEEK? NO . FEVER NO . FLU LIKE SYMPTOMS? NO . COUGH NO . INTEGUMENTARY: DO YOU HAVE ANY RASHES OR OPEN SORES? NO . ALLERGIC/IMMUNO: ARE YOU ALLERGIC TO SHELLFISH OR IV DYE? NO . ANY NEW ALLERGIES? NO . PSYCHIATRIC: DO YOU HAVE THOUGHTS OF HURTING YOURSELF OR SOMEONE ELSE? NO . ARE YOU ABUSED, NEGLECTED, OR IN AN UNSAFE ENVIRONMENT? NO . ENDOCRINOLOGY: ARE YOU DIABETIC? YES . OTHER: DO YOU NEED ANY PRESCRIPTIONS? NO . IF YES, PLEASE LIST: ____ . ANY NEW PROBLEMS WITH YOUR MEDICATIONS? NO . WHEN DID YOU LAST EAT? ____ . WHEN DID YOU LAST DRINK? ____ . WHAT DID YOU LAST DRINK? ____ . NAME OF PERSON DRIVING YOU HOME? ____ . DO YOU HAVE ANY OTHER QUESTIONS OR CONCERNS NO, PT DENIES RECEIVING FLU VACCINE THIS SEASON, NOR DOES HE PLAN TO . VITAL SIGNS WT 298 LBS, HT 70", BMI 42.75 INDEX, BP 119/75 MM HG, HR 82 /MIN, RR 18 /MIN, TEMP 98.9 F, OXYGEN SAT % 94%, NA INITIALS SC 15:41, REVIEWED BY: EM. EXAMINATION GENERAL EXAMINATION: GENERAL APPEARANCE:OVERWEIGHT. PSYCHALERT , ORIENTED X 3 , APPROPRIATE MOOD AND AFFECT . LUNGS:CLEAR TO AUSCULTATION BILATERALLY, NO WHEEZES RALES OR RHONCHI. HEART:HEART RATE REGULAR, NORMAL S1S2,. MUSCULOSKELETAL:MUSCLE STRENGTH TESTING 5/5 BILATERAL UPPER EXTREMITIES, 5-/5 RIGHT LOWER EXTREMITY, 4+LEFT LOWER EXTREMITY. POINT TENDERNESS OVER LUMBAR SPINOUS PROCESSES AND ACROSS THE LUMBOSACRAL AXIS. NO SPECIFIC TENDERNESS OVER BILATERAL SACRAL ILIAC JOINTS. SLOW TO RISE TO STANDING POSITION. POSTURE UPRIGHT. GAIT SLOW WIDEBASED. . NEUROLOGIC EXAM:NO SIGNIFICANT SENSORY CHANGES ELICITED TO LIGHT TOUCH OVER BILATERAL LOWER EXTREMITIES. 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 NOTES: HOLD METFORMIN AM OF PROCEDURE. CLINICAL NOTES: LENGTHY DISCUSSION HELD WITH PATIENT AND REGARDING FURTHER TREATMENT OPTIONS. DIFFERRENCE BETWEEN DIAGNOSTIC AND THERAPEUTIC LUMBAR FACET BLOCK EXPLAINED AND THE PATIENT ELECTED TO MOVE FORWAR WITH DIAGNOSTIC BILATERAL LUMBAR FACET BLOCK. PREVENTIVE MEDICINE DISCUSSED PRE PROCDEURE CARE SPECIFICALLY FOR DX PROCEDURE/ PT EXPRESSED UNDERSTANDING OF ALL. PROCEDURE CODES FA211 ESTABILISHED PATIENT [facility] CHARGE DISPOSITION & COMMUNICATION FOLLOW UP AFTER INJECTION (REASON: CHECK AUTH FOR BILATERAL DIAGNOSTIC LUMBAR FACET BLOCK AT L4-5 AND L5-S1) ELECTRONICALLY SIGNED BY ANGELA FAY ON 09/08/2017 AT 07:33 PM EST DISCLAIMER : THIS IS A VISIT SUMMARY EXTRACTED FROM THE [employer] CHART. IT IS NOT A COPY OF THE [employer] PROGRESS NOTE. PRIYANKA
== END ==
LOC: M PAIN 15:00
PROVIDERS: ATTEND Nurse Practitioner Family
DX: G89.29 Other chronic pain (principal); M51.26 Other intervertebral disc displacement, lumbar region; M46.97 Unspecified inflammatory spondylopathy, lumbosacral region; M25.552 Pain in left hip; I10 Essential (primary) hypertension; E78.00 Pure hypercholesterolemia, unspecified; M54.2 Cervicalgia; E11.9 Type 2 diabetes mellitus without complications; M19.90 Unspecified osteoarthritis, unspecified site; Z79.82 Long term (current) use of aspirin; Z79.84 Long term (current) use of oral hypoglycemic drugs; Z96.652 Presence of left artificial knee joint; Z88.0 Allergy status to penicillin; Z88.1 Allergy status to other antibiotic agents

== ENCOUNTER → 2017-10-08 | Outpatient (CLI) | payer BC ==
[~2017-10-08] MED LIST changes: -/WARF25TA PO; -ALTA10CA3 PO; +BUPIVACAINE HCL 0.25% 30 ML VIAL As Ordered; -DILA2TAB PO; +ISOVUE-M 300 61% 15ML VIAL (Q9967) As Ordered; +LIDOCAINE 1% SDV INJ 30 ML VIAL As Ordered; -METOPROLOL PO; -TYLE325T5 PO; -[UNRECOGNIZED DRUG - OTHER] PO
== END ==
LOC: M PAIN 08:30
DX: G89.29 Other chronic pain (principal); M47.816 Spondylosis without myelopathy or radiculopathy, lumbar region; M47.817 Spondylosis without myelopathy or radiculopathy, lumbosacral region; I10 Essential (primary) hypertension; E78.00 Pure hypercholesterolemia, unspecified; M54.2 Cervicalgia; M19.90 Unspecified osteoarthritis, unspecified site; Z79.82 Long term (current) use of aspirin; Z79.84 Long term (current) use of oral hypoglycemic drugs; Z79.899 Other long term (current) drug therapy; Z88.0 Allergy status to penicillin; Z88.1 Allergy status to other antibiotic agents; Z88.8 Allergy status to other drugs, medicaments and biological substances
CPT/HCPCS: Q9967

== ENCOUNTER → 2017-10-29 | Outpatient (CLI) | payer BC | LOC: M PAIN 14:45 | DX: M47.816 Spondylosis without myelopathy or radiculopathy, lumbar region (principal); M51.26 Other intervertebral disc displacement, lumbar region; M47.817 Spondylosis without myelopathy or radiculopathy, lumbosacral region; I10 Essential (primary) hypertension; E78.00 Pure hypercholesterolemia, unspecified; Z79.82 Long term (current) use of aspirin; Z79.84 Long term (current) use of oral hypoglycemic drugs; Z79.899 Other long term (current) drug therapy; Z88.0 Allergy status to penicillin; Z88.1 Allergy status to other antibiotic agents; Z88.8 Allergy status to other drugs, medicaments and biological substances | CPT/HCPCS: G0463 ==

== ENCOUNTER → 2017-11-25 | Outpatient (CLI) | payer BC | LOC: M PAIN 08:45 | DX: M47.816 Spondylosis without myelopathy or radiculopathy, lumbar region (principal); M47.817 Spondylosis without myelopathy or radiculopathy, lumbosacral region; M51.26 Other intervertebral disc displacement, lumbar region; E11.9 Type 2 diabetes mellitus without complications; I10 Essential (primary) hypertension; E78.00 Pure hypercholesterolemia, unspecified; M19.90 Unspecified osteoarthritis, unspecified site; Z79.82 Long term (current) use of aspirin; Z79.84 Long term (current) use of oral hypoglycemic drugs; Z79.899 Other long term (current) drug therapy; Z88.0 Allergy status to penicillin; Z88.1 Allergy status to other antibiotic agents; Z88.8 Allergy status to other drugs, medicaments and biological substances; Z96.652 Presence of left artificial knee joint | CPT/HCPCS: G0463 ==

== ENCOUNTER → 2017-12-09 | Outpatient (CLI) | payer BC | LOC: M PAIN 15:30 | DX: G89.29 Other chronic pain (principal); M51.16 Intervertebral disc disorders with radiculopathy, lumbar region; I10 Essential (primary) hypertension; E78.00 Pure hypercholesterolemia, unspecified; M25.552 Pain in left hip; E11.9 Type 2 diabetes mellitus without complications; M54.2 Cervicalgia; Z96.652 Presence of left artificial knee joint; Z79.82 Long term (current) use of aspirin; Z79.84 Long term (current) use of oral hypoglycemic drugs; Z79.899 Other long term (current) drug therapy; Z88.0 Allergy status to penicillin; Z88.1 Allergy status to other antibiotic agents | CPT/HCPCS: G0463 ==

== ENCOUNTER → 2017-12-27 | Outpatient (CLI) | payer BC | LOC: M PLARAD 08:23 | DX: M75.32 Calcific tendinitis of left shoulder (principal) ==

== ENCOUNTER → 2018-01-03 | Outpatient (CLI) | payer BC | LOC: M PAIN 10:45 | DX: M47.816 Spondylosis without myelopathy or radiculopathy, lumbar region (principal); M47.817 Spondylosis without myelopathy or radiculopathy, lumbosacral region; M51.26 Other intervertebral disc displacement, lumbar region; I10 Essential (primary) hypertension; E78.00 Pure hypercholesterolemia, unspecified; Z79.82 Long term (current) use of aspirin; Z79.84 Long term (current) use of oral hypoglycemic drugs; Z79.899 Other long term (current) drug therapy; Z88.0 Allergy status to penicillin; Z88.8 Allergy status to other drugs, medicaments and biological substances; Z96.652 Presence of left artificial knee joint | CPT/HCPCS: G0463 ==

== ENCOUNTER → 2018-05-13 | Outpatient (CLI) | payer BC | LOC: M PAIN 14:30 | DX: M54.14 Radiculopathy, thoracic region (principal); M51.26 Other intervertebral disc displacement, lumbar region; M47.816 Spondylosis without myelopathy or radiculopathy, lumbar region; M47.817 Spondylosis without myelopathy or radiculopathy, lumbosacral region; E11.9 Type 2 diabetes mellitus without complications; I10 Essential (primary) hypertension; E78.00 Pure hypercholesterolemia, unspecified; M19.90 Unspecified osteoarthritis, unspecified site; Z79.82 Long term (current) use of aspirin; Z79.84 Long term (current) use of oral hypoglycemic drugs; Z79.899 Other long term (current) drug therapy; Z88.0 Allergy status to penicillin; Z88.8 Allergy status to other drugs, medicaments and biological substances; Z96.652 Presence of left artificial knee joint | CPT/HCPCS: G0463 ==

== ENCOUNTER → 2018-05-26 | Outpatient (CLI) | payer BC | LOC: M PAIN 11:45 | DX: M54.14 Radiculopathy, thoracic region (principal); M51.26 Other intervertebral disc displacement, lumbar region; M47.816 Spondylosis without myelopathy or radiculopathy, lumbar region; M47.817 Spondylosis without myelopathy or radiculopathy, lumbosacral region; I10 Essential (primary) hypertension; E78.00 Pure hypercholesterolemia, unspecified; Z96.652 Presence of left artificial knee joint; Z79.82 Long term (current) use of aspirin; Z79.84 Long term (current) use of oral hypoglycemic drugs; Z79.899 Other long term (current) drug therapy; Z88.0 Allergy status to penicillin; Z88.1 Allergy status to other antibiotic agents; Z88.5 Allergy status to narcotic agent | CPT/HCPCS: G0463 ==

== ENCOUNTER → 2018-08-04 | Outpatient (CLI) | payer BC | LOC: M PAIN 14:00 | DX: M51.16 Intervertebral disc disorders with radiculopathy, lumbar region (principal); G89.29 Other chronic pain; E11.9 Type 2 diabetes mellitus without complications; I10 Essential (primary) hypertension; E78.00 Pure hypercholesterolemia, unspecified; M19.90 Unspecified osteoarthritis, unspecified site; Z79.82 Long term (current) use of aspirin; Z79.84 Long term (current) use of oral hypoglycemic drugs; Z79.899 Other long term (current) drug therapy; Z88.0 Allergy status to penicillin; Z88.1 Allergy status to other antibiotic agents; Z88.5 Allergy status to narcotic agent; Z88.8 Allergy status to other drugs, medicaments and biological substances; Z96.652 Presence of left artificial knee joint | CPT/HCPCS: G0463 ==

== ENCOUNTER → 2018-09-23 | Outpatient (REF) | payer BC | LOC: M LAB REF 14:17 | DX: R22.1 Localized swelling, mass and lump, neck (principal) | CPT/HCPCS: 88313 ==

== ENCOUNTER → 2019-05-27 | Outpatient (REF) | payer BC ==
[~2019-05-27] MED LIST changes: +ALTA10CA3 PO; -BUPIVACAINE HCL 0.25% 30 ML VIAL As Ordered; +COUM1TAB18 PO; +DILA2TAB PO; -ISOVUE-M 300 61% 15ML VIAL (Q9967) As Ordered; -LIDOCAINE 1% SDV INJ 30 ML VIAL As Ordered; +METOPROLOL PO; +TYLE325T5 PO; +[UNRECOGNIZED DRUG - OTHER] PO
== END ==
LOC: M LAB LCGH 09:41
PROVIDERS: ATTEND Nurse Practitioner Family
DX: L91.8 Other hypertrophic disorders of the skin (principal); R23.8 Other skin changes

== ENCOUNTER → 2019-07-06 | Outpatient (REF) | LOC: M LAB LCGH 15:43 | PROVIDERS: ATTEND Nurse Practitioner Family | DX: L91.8 Other hypertrophic disorders of the skin (principal); R23.8 Other skin changes ==

== ENCOUNTER → 2020-06-24 | Outpatient (CLI) | payer BC ==
[~2020-06-24] MED LIST changes: +BUPIVACAINE HCL 0.5% 10ML VIAL As Ordered ONE; +ISOVUE-300 61% 50ML VIAL As Ordered ONE; +TRIAMCINOLONE ACETONIDE SUSP 40 MG/ML VIAL (J3301) As Ordered ONE
--- NOTE | 2020-07-20 10:51 | REP ---
LEFT HIP INJECTION The procedure was performed under the direct supervision of Dr. Anderson. The benefits and risks including, but not limited to pain, infection, bleeding, and anaphylaxis were explained to the patient and informed consent was obtained. The left femoral neck was localized using fluoroscopic guidance. The skin was prepped and draped in a sterile fashion. 1% Lidocaine was used as a local anesthetic. Using fluoroscopic guidance, a 22-gauge needle was inserted and advanced to the femoral neck. 0.5 mL Omnipaque-300 was injected to verify placement. 6 mL of a solution containing 5 mL of 0.5% Marcaine and 1 mL of Kenalog 40 mg was injected. The needle was then removed. The patient tolerated the procedure well and there were no immediate complications. Less than 6 seconds fluoroscopy time was utilized for this procedure. PRIYANKA
== END ==
LOC: M RADPRO 10:53
PROVIDERS: ATTEND Specialist
DX: M25.552 Pain in left hip (principal); M54.30 Sciatica, unspecified side
CPT/HCPCS: 20610; 77002; J3301; Q9967

== ENCOUNTER → 2023-06-27 | Outpatient (CLI) | payer OTHER ==
[~2023-06-27] MED LIST changes: +ATOR40TA75 PO; -BUPIVACAINE HCL 0.5% 10ML VIAL As Ordered ONE; +ECOT81TA5 PO; +HYDR12.55 PO; -ISOVUE-300 61% 50ML VIAL As Ordered ONE; +METF-838 PO; +METO50TA7 PO; +PREG100C2 PO; +PREG150C2 PO; +RAMI1CAP26 PO; +TAMS1CAP17 PO; -TRIAMCINOLONE ACETONIDE SUSP 40 MG/ML VIAL (J3301) As Ordered ONE
== END ==
LOC: M ONCR 08:29
PROVIDERS: ATTEND General Practice
DX: C61 Malignant neoplasm of prostate (principal); R97.20 Elevated prostate specific antigen [PSA]; K59.09 Other constipation; R39.14 Feeling of incomplete bladder emptying; N39.43 Post-void dribbling; Z79.01 Long term (current) use of anticoagulants; Z79.811 Long term (current) use of aromatase inhibitors; Z79.82 Long term (current) use of aspirin; Z79.84 Long term (current) use of oral hypoglycemic drugs; Z79.899 Other long term (current) drug therapy; Z80.3 Family history of malignant neoplasm of breast; Z88.0 Allergy status to penicillin; Z88.1 Allergy status to other antibiotic agents

== ENCOUNTER → 2023-08-20 | Outpatient (RCR) | payer OTHER ==
[~2023-08-20] MED LIST changes: +FINA5TAB2 PO
== END ==
LOC: M ONCR 07-22 09:08
PROVIDERS: ATTEND General Practice
DX: Z51.0 Encounter for antineoplastic radiation therapy (principal); C61 Malignant neoplasm of prostate

== ENCOUNTER 2023-08-28 09:08 | Outpatient (RCR) | payer OTHER | END 2023-09-19 | LOC: M ONCR 09:08 | PROVIDERS: ATTEND General Practice | DX: Z51.0 Encounter for antineoplastic radiation therapy (principal); C61 Malignant neoplasm of prostate ==

== ENCOUNTER → 2023-11-28 | Outpatient (CLI) | payer OTHER | LOC: M ONCR 09:08 | PROVIDERS: ATTEND General Practice | DX: C61 Malignant neoplasm of prostate (principal); Z71.2 Person consulting for explanation of examination or test findings; Z79.811 Long term (current) use of aromatase inhibitors; Z79.82 Long term (current) use of aspirin; Z79.84 Long term (current) use of oral hypoglycemic drugs; Z79.899 Other long term (current) drug therapy; Z88.0 Allergy status to penicillin; Z88.1 Allergy status to other antibiotic agents; Z92.3 Personal history of irradiation ==

== ENCOUNTER 2024-02-29 18:49 | Emergency (ER) | payer OTHER ==
[~2024-02-29] VITALS: Ht 182.9 cm; Wt 141.5 kg
[~2024-02-29 18:49] MED LIST changes: +RAMI10CA64 PO; -RAMI1CAP26 PO
[2024-02-29 19:43] LABS: BASO # 0.1 10^3/uL (0.0-0.2); BASO % 0.8 % (0.0-1.0); EOS # 0.2 10^3/uL (0.0-0.5); EOS % 2.5 % (0.0-3.0); HEMATOCRIT 42.4 % (42.0-52.0); LYMPH # 1.3 10^3/uL (1.5-5.0); LYMPH % 17.4 % (24.0-44.0); MEAN CORPUSCULAR HEMOGLOBIN 28.6 pg (27.0-33.0); MEAN CORPUSCULAR VOLUME 86.5 fl (80.0-96.0); MONO # 0.6 10^3/uL (0.0-0.8); MONO % 7.1 % (2.0-8.0); NEUTROPHILS # 5.5 10^3/uL (1.5-8.5); NEUTROPHILS % 71.7 % (36.0-66.0); PLATELET COUNT, AUTOMATED 243 10^3/uL (150-450); WHITE BLOOD COUNT 7.7 10^3/uL (4.0-10.0)
[2024-02-29 19:55] LABS: INR 1.02; PROTHROMBIN TIME 13.1 SECONDS (12.5-14.5)
[2024-02-29 20:16] LABS: CK-MB VALUE MASS < 1.0 NG/ML (<3.6); LIPASE 36 U/L (12-53)
[2024-02-29 20:17] LABS: CPK CREATINE PHOSPHOKINASE 110 U/L (46-171)
[2024-02-29 20:18] LABS: ALBUMIN 3.7 G/DL (3.2-5.2); ALKALINE PHOSPHATASE 81 U/L (46-116); ALT/SGPT 28 U/L (7.0-40); AST/SGOT 16 U/L (<34); BILIRUBIN,DIRECT 0.6 MG/DL (<0.4); BILIRUBIN,TOTAL 1.6 MG/DL (0.3-1.2); BLOOD UREA NITROGEN 17 MG/DL (9-23); CALCIUM LEVEL 9.2 MG/DL (8.3-10.6); CARBON DIOXIDE LEVEL 28 MMOL/L (20-31); CHLORIDE LEVEL 107 MMOL/L (98-107); CREATININE FOR GFR 0.86 MG/DL (0.70-1.30); GLOMERULAR FILTRATION RATE > 60.0 (>49); GLUCOSE, FASTING 122 MG/DL (74-106); POTASSIUM SERUM 4.1 MMOL/L (3.5-5.1); SODIUM LEVEL 144 MMOL/L (136-145); TOTAL PROTEIN 7.3 G/DL (5.7-8.2)
[2024-02-29] MEDS ORDERED: GLUCAGON INJ 1MG VIAL As Ordered ONE (20:53)
[2024-02-29] MEDS: GLUCAGON INJ 1MG VIAL IV STA (20:55)
[2024-02-29] MEDS: MORPHINE 4 MG/ML 1ML VIAL IV PRN (22:46)
[2024-02-29 23:05] VITALS: BP 156/74; TEMP 98.1; O2SAT 98
== END 2024-02-29 23:09 | disposition short-term general hospital (02) ==
LOC: M ED 18:49
DX: T18.128A Food in esophagus causing other injury, initial encounter (principal); I10 Essential (primary) hypertension; E78.5 Hyperlipidemia, unspecified; Z88.0 Allergy status to penicillin; Z88.8 Allergy status to other drugs, medicaments and biological substances; Z79.1 Long term (current) use of non-steroidal anti-inflammatories (NSAID); Z79.84 Long term (current) use of oral hypoglycemic drugs; Z79.899 Other long term (current) drug therapy
CPT/HCPCS: 71045; 80048; 80076; 82550; 82553; 83690; 84484; 85025; 85610; 93005; 93041; 94760; 96374; 96375; 99285; J1610

== ENCOUNTER → 2024-05-29 | Outpatient (CLI) | payer OTHER | LOC: M ONCR 09:09 | PROVIDERS: ATTEND General Practice | DX: C61 Malignant neoplasm of prostate (principal); Z79.82 Long term (current) use of aspirin; Z79.899 Other long term (current) drug therapy; Z79.84 Long term (current) use of oral hypoglycemic drugs; Z79.01 Long term (current) use of anticoagulants; Z79.811 Long term (current) use of aromatase inhibitors; Z88.0 Allergy status to penicillin; Z88.1 Allergy status to other antibiotic agents; Z92.3 Personal history of irradiation ==

== ENCOUNTER → 2025-06-11 | Outpatient (CLI) | payer MEDICARE | LOC: M ONCR 07:45 | PROVIDERS: ATTEND General Practice | DX: C61 Malignant neoplasm of prostate (principal); Z88.0 Allergy status to penicillin; Z88.1 Allergy status to other antibiotic agents; Z79.811 Long term (current) use of aromatase inhibitors; Z79.82 Long term (current) use of aspirin; Z79.84 Long term (current) use of oral hypoglycemic drugs; Z79.899 Other long term (current) drug therapy; Z92.3 Personal history of irradiation | CPT/HCPCS: 36415; 84153; G0463 ==